=== PATIENT | female | born 1935 | race Two or more races ===

== ENCOUNTER 2017-08-14 10:35 | Outpatient (CLI) | payer OTHER | END 2017-08-14 10:41 | disposition home or self-care (01) | LOC: NUCLEAR 10:35 | DX: M81.0 Age-related osteoporosis without current pathological fracture (principal) ==

== ENCOUNTER → 2019-02-24 | Outpatient (CLI) | payer OTHER | END | disposition home or self-care (01) | LOC: MAMO-SONO 11:44 | DX: Z12.31 Encounter for screening mammogram for malignant neoplasm of breast (principal); Z87.898 Personal history of other specified conditions ==

== ENCOUNTER 2019-09-08 12:54 | Outpatient (CLI) | payer OTHER | END 2019-09-08 13:00 | disposition home or self-care (01) | LOC: SONOGRAMA 12:54 | DX: M06.09 Rheumatoid arthritis without rheumatoid factor, multiple sites (principal); M25.512 Pain in left shoulder; M25.511 Pain in right shoulder ==

== ENCOUNTER 2019-12-14 09:40 | Outpatient (CLI) | payer OTHER | END 2019-12-14 09:49 | disposition home or self-care (01) | LOC: SONOGRAMA 09:40 | PROVIDERS: ATTEND Surgery | DX: R19.09 Other intra-abdominal and pelvic swelling, mass and lump (principal) ==

== ENCOUNTER 2020-05-15 13:56 | Outpatient (CLI) | payer OTHER | END 2020-05-15 14:06 | disposition home or self-care (01) | LOC: RAD 13:56 | PROVIDERS: ATTEND Surgery | DX: M51.37 Other intervertebral disc degeneration, lumbosacral region (principal); M15.0 Primary generalized (osteo)arthritis ==

== ENCOUNTER → 2020-06-14 | Outpatient (CLI) | payer OTHER | END | disposition home or self-care (01) | LOC: TOM 13:15 | PROVIDERS: ATTEND Internal Medicine Hematology & Oncology | DX: R91.1 Solitary pulmonary nodule (principal); C50.411 Malignant neoplasm of upper-outer quadrant of right female breast ==

== ENCOUNTER 2021-01-08 13:26 | Outpatient (CLI) | payer OTHER | END 2021-01-08 13:39 | disposition home or self-care (01) | LOC: TOM 13:26 | PROVIDERS: ATTEND Internal Medicine Hematology & Oncology | DX: R91.8 Other nonspecific abnormal finding of lung field (principal); R09.1 Pleurisy; Q33.0 Congenital cystic lung; R63.4 Abnormal weight loss ==

== ENCOUNTER 2023-05-01 11:41 | Emergency (ER) | payer OTHER ==
[~2023-05-01] VITALS: Ht 154.9 cm; Wt 40.8 kg
[2023-05-01 13:02] LABS: HEMATOCRIT 36.6 % (36.0-45.00); HEMOGLOBIN 12.1 g/dL (12.0-15.00); MEAN CORPUSCULAR HEMOGLOBIN 28.1 pg (27.00-32.0); PLATELET COUNT 171 K/uL (150-450); RED BLOOD COUNT 4.31 M/uL (4.00-6.00)
[2023-05-01 13:47] LABS: CALCIUM 8.6 mg/dL (8.5-10.1); CREATININE SERUM 0.93 mg/dL (0.55-1.02); GFR 57.3; POTASSIUM 3.82 mEq/L (3.5-5.1)
== END 2023-05-01 16:22 | disposition home or self-care (01) ==
LOC: ER
PROVIDERS: Emergency Medicine
DX: K52.89 Other specified noninfective gastroenteritis and colitis (principal)
CPT/HCPCS: 36415; 96365; 96366; 99284; J7030

== ENCOUNTER → 2023-12-13 | Emergency (ER) | payer OTHER ==
[~2023-12-13] VITALS: Ht 149.9 cm; Wt 40.8 kg
[~2023-12-13] MED LIST: GLIPIZIDE ER10 MG PO; LORAZEPAM0.5 MG PO; SYNTHROID75 MCG PO; TRAMADOL HCL 50 MG TABLET PO ONE
[2023-12-13 14:29] LABS: PH,URINE 5.5 (5.0-8.0); URINE APPEARANCE Turbid; URINE BILIRRUBIN Negative (NEGATIVE); URINE BLOOD Moderate; URINE COLOR Yellow; URINE GLUCOSE Negative (NEGATIVE); URINE KETONE Trace (NEGATIVE); URINE LEUKOCYTE Large; URINE NITRATE Positive; URINE UROBILINOGEN 0.2 E.U./dl
[2023-12-13 14:32] LABS: URINE CAST 6.54 uL (0.0-1.40); URINE EPITHELIAL CELLS 12.6 uL (0.0-38.8)
[2023-12-13 14:50] LABS: URINE BACTERIA > 9821.5 uL (0.0-1933); URINE PROTEIN 100 (NEGATIVE); URINE RBC 0.9 uL (0.0-20.8); URINE WBC > 5548.3 uL (0.0-23.2)
[2023-12-13 14:52] LABS: URINE YEAST NEGATIVE /hpf
== END | disposition left against medical advice (07) ==
LOC: ER 11:40
PROVIDERS: General Practice
DX: M79.642 Pain in left hand (principal); Z91.013 Allergy to seafood

== ENCOUNTER 2024-04-10 12:12 | Inpatient (IN) | payer OTHER ==
[~2024-04-10] VITALS: Ht 157.5 cm; Wt 54.4 kg
[~2024-04-10 12:12] MED LIST changes: +ACETAMINOPHEN500 M2 PO; +CALCIUM500 M2 PO; +FOLIC ACID20 MG PO; +GLIPIZIDE XL5 MG PO; -TRAMADOL HCL 50 MG TABLET PO ONE; +TRIPLE FLEX CA1 EACH PO
[2024-04-10] MEDS ORDERED: SYNTHROID75 MCG (12:51)
[2024-04-10] MEDS ORDERED: NORVASC2.5 M1 (12:52)
[2024-04-10] MEDS ORDERED: GLIPIZIDE10 MG (12:52)
--- NOTE | 2024-04-10 12:52 | NUR ---
SE RECIBE PACIENTE ALERTA EN COMPANIA DE FAMILIAR LA CUAL INDICA QUE PRESENTA DIARRAS Y DEBILIDAD DESDE EL JUEVES.
[2024-04-10] MEDS ORDERED: 0.9 % SODIUM CHLORIDE 1,000 ML IV STA (12:57)
[2024-04-10] MEDS ORDERED: FAMOtidine 10 MG/ML (4ML VIAL) IV STA (12:58)
--- NOTE | 2024-04-10 13:09 | NUR ---
PACIENTA ALERTA EN COMPANIA DE FAMILIAR. RN MENDEZ EDUCA A FAMILIR SOBRE PAULO DE MUESTRAS Y TRATAMIENTO MEDICO ORDENADO POR , MARY ANN REFIERE ENTENDER. SE REALIZA PAULO DE MUESTRAS Y SE ADMINISTRA TRATAMIENTO MEDICO BAJO MEDIDAS ASEPTICAS. SE NOTIFICAN XRAY
[2024-04-10 14:21] LABS: HEMATOCRIT 45.2 % (36.0-45.00); HEMOGLOBIN 14.6 g/dL (12.0-15.00); MEAN CELL VOLUME 82.8 fL (80.00-100.00); MEAN CORPUSCULAR HEMOGLOBIN 26.8 pg (27.00-32.0); MEAN CORPUSCULAR HGB CONC 32.4 g/dl (32.0-36.0); RED BLOOD COUNT 5.46 M/uL (4.00-6.00); RED CELL DISTRIBUTION WIDTH 16.1 % (11.5-14.5)
[2024-04-10 14:49] LABS: BILIRUBIN TOTAL 0.43 mg/dL (0.3-1.2); BILIRUBIN,CONJUGATED 0.11 mg/dL (0.0-0.2); BILIRUBIN,UNCONJUGATED 0.32 mg/dL (0.0-0.6); CALCIUM 9.1 mg/dL (8.5-10.1); CREATININE SERUM 0.99 mg/dL (0.55-1.02); GFR 53.18; POTASSIUM 4.3 mEq/L (3.5-5.1); TOTAL PROTEIN 9.1 gm/dL (6.4-8.2)
[2024-04-10 15:07] LABS: PLATELET COUNT 93 K/uL (150-450)
[2024-04-10 16:18] LABS: PH,URINE 5.5 (5.0-8.0); URINE APPEARANCE Cloudy; URINE BILIRRUBIN Negative (NEGATIVE); URINE BLOOD Moderate; URINE COLOR Yellow; URINE GLUCOSE Negative (NEGATIVE); URINE KETONE 15 (NEGATIVE); URINE LEUKOCYTE Moderate; URINE NITRATE Negative; URINE UROBILINOGEN 0.2 E.U./dl
[2024-04-10 16:23] LABS: URINE RBC 18.5 uL (0.0-20.8); URINE WBC 3288.8 uL (0.0-23.2)
[2024-04-10 16:48] LABS: URINE BACTERIA > 9821.5 uL (0.0-1933); URINE CAST 0.73 uL (0.0-1.40); URINE EPITHELIAL CELLS 0.9 uL (0.0-38.8); URINE PROTEIN 300 (NEGATIVE)
--- NOTE | 2024-04-10 20:12 | NUR ---
SE NOTIFICA CT PENDIENTE.
--- NOTE | 2024-04-10 23:06 | NUR ---
PACIENTE ALERTA Y ORIENTADA X3. SE MANTIENE EN CAMA A NIVEL DE PISO JUNTO CON BARRANDAS ELEVADAS. PENDIENTE A LECTURA DE CT Y ENTREGA DE MUESTRA FECAL.
[2024-04-11] MEDS ORDERED: CEFTRIAXONE SODIUM 2,000 MG in 0.9 % SODIUM CHLORIDE 100 ML IV SCH (12:26)
[2024-04-11] MEDS ORDERED: PANTOPRAZOLE SODIUM 40 MG/VIAL VIAL IV SCH (12:28)
[2024-04-11] MEDS ORDERED: INSULIN LISPRO 1,000 UNIT/10 ML UNITS SUBCUTANEO PRN ×2 (12:30)
[2024-04-11] MEDS ORDERED: 0.9 % SODIUM CHLORIDE 1,000 ML IV SCH (12:30)
[2024-04-11] MEDS ORDERED: DEXTROSE 50 % IN WATER 0.5 G/ML DISP.SYRIN IV PRN (12:30)
[2024-04-11] MEDS ORDERED: ACETAMINOPHEN 500 MG GEL..CAP PO PRN (12:30)
[2024-04-11] MEDS ORDERED: ONDANSETRON HCL 4 MG in 0.9 % SODIUM CHLORIDE 50 ML IV PRN (13:15)
[2024-04-11 18:10] LABS: INR 1.02; PARTIAL THROMBOPLASTIN TIME 28.5 SECONDS (22.0-34.0); PROTHROMBIN TIME 11.1 SECONDS (9.0-11.5)
[2024-04-11 19:56] VITALS: BP 134/75; O2SAT 99
[2024-04-11] MEDS ORDERED: LORazepam 0.5 MG TABLET PO SCH (21:00)
[2024-04-12 01:14] VITALS: BP 150/74; O2SAT 98
[2024-04-12] MEDS ORDERED: LEVOTHYROXINE SODIUM 75 MCG TABLET PO SCH (06:00)
[2024-04-12 08:13] VITALS: BP 127/73; O2SAT 97
[2024-04-12 09:56] LABS: ALBUMIN 2.9 gm/dL (3.4-5.0); BILIRUBIN TOTAL 0.24 mg/dL (0.3-1.2); CALCIUM 7.9 mg/dL (8.5-10.1); CREATININE SERUM 0.65 mg/dL (0.55-1.02); GFR 86.42; GLOBULINA 4.3 G/DL (2.4-3.5); POTASSIUM 3.2 mEq/L (3.5-5.1); TOTAL PROTEIN 7.2 gm/dL (6.4-8.2)
[2024-04-12] MEDS ORDERED: METRONIDAZOLE/SODIUM CHLORIDE 100 ML IV SCH (17:00)
[2024-04-12 17:43] VITALS: BP 146/83
[2024-04-13 01:57] VITALS: BP 149/70; O2SAT 98
[2024-04-13 08:52] LABS: HEMATOCRIT 38.3 % (36.0-45.00); MEAN CELL VOLUME 81.5 fL (80.00-100.00); MEAN CORPUSCULAR HEMOGLOBIN 27.6 pg (27.00-32.0); MEAN CORPUSCULAR HGB CONC 33.8 g/dl (32.0-36.0); RED CELL DISTRIBUTION WIDTH 16.2 % (11.5-14.5)
[2024-04-13 08:53] VITALS: BP 148/80; O2SAT 97
[2024-04-13 08:53] LABS: PLATELET COUNT 74 K/uL (150-450)
[2024-04-13] MEDS ORDERED: LACTULOSE 20 G/30 ML BLIST.PACK PO SCH (09:00)
[2024-04-13] MEDS ORDERED: AMINO ACIDS/PROTEIN HYDROLYS 30 ML BLIST.PACK PO SCH (09:00)
[2024-04-13] MEDS ORDERED: ALBUMIN HUMAN-25 0.25GM/ML (50ML) VIAL IV SCH (09:00)
[2024-04-13] MEDS ORDERED: PROPRANOLOL HCL 10 MG TABLET PO SCH (09:04)
[2024-04-13] MEDS ORDERED: Cyanocobalamin/Mecobalamin 1 TAB.SL SL SCH (09:06)
[2024-04-13] MEDS ORDERED: SODIUM CHLORIDE 0.45 % 1,000 ML IV SCH (09:15)
[2024-04-13] MEDS ORDERED: FUROsemide 20 MG/2 ML VIAL IV SCH (10:04)
[2024-04-13] MEDS ORDERED: MAGNESIUM SULFATE 50% 1,000 MG/2 ML VIAL IM NR (10:06)
[2024-04-13] MEDS ORDERED: POTASSIUM CHLORIDE 20MEQ/100ML H2O PB IV NR (10:06)
[2024-04-13 10:46] LABS: PLATELET ESTIMATE DECREASED (NORMAL)
[2024-04-13 12:16] LABS: ALBUMIN 2.9 gm/dL (3.4-5.0); ALKALINE PHOSPHATASE 40 U/L (50-136); ALT/SGPT 46 U/L (12-78); ANION GAP 13 (10.0-20.0); AST/SGOT 74 U/L (15-37); BILIRUBIN TOTAL 0.32 mg/dL (0.3-1.2); BLOOD UREA NITROGEN 12 mg/dL (7-18); BUN CREA RATIO 21 (7.0-25.0); CALCIUM 7.9 mg/dL (8.5-10.1); CARBON DIOXIDE 20 mEq/L (21-32); CHLORIDE 112 mmol/L (98-107); CREATININE SERUM 0.56 mg/dL (0.55-1.02); GFR 102.64; GLOBULINA 4.4 G/DL (2.4-3.5); GLUCOSE FASTING 93 mg/dL (65-100); OSMOLALITY SERUM 283 MOSM/KG (275-295); POTASSIUM 3.27 mEq/L (3.5-5.1); SODIUM 142 mmol/L (136-145); TOTAL PROTEIN 7.3 gm/dL (6.4-8.2)
[2024-04-13 13:00] LABS: C-REACTIVE PROTEIN < 0.29 MG/DL (0.00-0.29); PHOSPHOROUS 1.9 mg/dL (2.5-4.9)
[2024-04-13] MEDS ORDERED: SPIRONOLACTONE 25 MG TABLET PO SCH (17:00)
[2024-04-13 19:09] VITALS: BP 134/81
[2024-04-13 20:24] LABS: ob NEGATIVE (NEGATIVE)
[2024-04-14 02:42] VITALS: BP 129/80; O2SAT 99
[2024-04-14 06:15] LABS: HEMATOCRIT 36.5 % (36.0-45.00); HEMOGLOBIN 12.2 g/dL (12.0-15.00); MEAN CELL VOLUME 81.1 fL (80.00-100.00); MEAN CORPUSCULAR HEMOGLOBIN 27.2 pg (27.00-32.0); MEAN CORPUSCULAR HGB CONC 33.5 g/dl (32.0-36.0); RED CELL DISTRIBUTION WIDTH 15.7 % (11.5-14.5)
[2024-04-14 06:41] LABS: ALBUMIN 3.9 gm/dL (3.4-5.0); ALKALINE PHOSPHATASE 38 U/L (50-136); ALT/SGPT 43 U/L (12-78); AST/SGOT 69 U/L (15-37); BILIRUBIN TOTAL 0.51 mg/dL (0.3-1.2); BLOOD UREA NITROGEN 17 mg/dL (7-18); BUN CREA RATIO 29 (7.0-25.0); CALCIUM 8.2 mg/dL (8.5-10.1); CARBON DIOXIDE 22 mEq/L (21-32); CHLORIDE 108 mmol/L (98-107); CREATININE SERUM 0.59 mg/dL (0.55-1.02); GFR 96.64; GLOBULINA 3.8 G/DL (2.4-3.5); GLUCOSE FASTING 118 mg/dL (65-100); OSMOLALITY SERUM 282 MOSM/KG (275-295); PHOSPHOROUS 2.2 mg/dL (2.5-4.9); SODIUM 140 mmol/L (136-145); TOTAL PROTEIN 7.7 gm/dL (6.4-8.2)
[2024-04-14 06:57] LABS: ANION GAP 13 (10.0-20.0); C-REACTIVE PROTEIN < 0.29 MG/DL (0.00-0.29)
[2024-04-14 06:58] LABS: POTASSIUM 2.66 mEq/L (3.5-5.1)
[2024-04-14 07:22] LABS: PLATELET COUNT 79 K/uL (150-450)
[2024-04-14 07:23] LABS: MANUAL PLATELET COUNT 134
[2024-04-14 08:59] VITALS: BP 142/70; O2SAT 99
[2024-04-14] MEDS ORDERED: POTASSIUM CHLORIDE IN WATER 40 MEQ/100 ML PIGGYBAG IV SCH (09:00)
[2024-04-14] MEDS ORDERED: FUROsemide 20 MG/2 ML VIAL IV PRN (09:27)
[2024-04-14] MEDS ORDERED: POTASSIUM PHOS,M-BASIC-D-BASIC 18 MM in 0.9 % SODIUM CHLORIDE 500 ML IV NR (09:30)
[2024-04-14] MEDS ORDERED: MAGNESIUM SULFATE IN WATER 50 ML IV SCH (12:00)
[2024-04-14] MEDS ORDERED: SPIRONOLACTONE 50 MG TABLET PO SCH (17:00)
[2024-04-14] MEDS ORDERED: PROPRANOLOL HCL 20 MG TABLET PO SCH (17:00)
[2024-04-14 18:18] VITALS: BP 140/70; O2SAT 100
[2024-04-15 02:48] VITALS: BP 133/71; O2SAT 96
[2024-04-15 10:10] VITALS: BP 149/70; O2SAT 96
[2024-04-15 17:51] VITALS: BP 158/78
[2024-04-16 02:17] VITALS: BP 138/80; O2SAT 96
[2024-04-16 08:24] LABS: ALBUMIN 3.5 gm/dL (3.4-5.0); ALKALINE PHOSPHATASE 34 U/L (50-136); ALT/SGPT 39 U/L (12-78); ANION GAP 8 (10.0-20.0); AST/SGOT 59 U/L (15-37); BILIRUBIN TOTAL 0.33 mg/dL (0.3-1.2); BLOOD UREA NITROGEN 14 mg/dL (7-18); BUN CREA RATIO 26 (7.0-25.0); CALCIUM 8.4 mg/dL (8.5-10.1); CARBON DIOXIDE 25 mEq/L (21-32); CHLORIDE 112 mmol/L (98-107); CREATININE SERUM 0.54 mg/dL (0.55-1.02); GFR 107.04; GLOBULINA 3.6 G/DL (2.4-3.5); GLUCOSE FASTING 144 mg/dL (65-100); OSMOLALITY SERUM 286 MOSM/KG (275-295); PHOSPHOROUS 2.2 mg/dL (2.5-4.9); POTASSIUM 3.31 mEq/L (3.5-5.1); SODIUM 142 mmol/L (136-145); TOTAL PROTEIN 7.1 gm/dL (6.4-8.2)
[2024-04-16 08:26] LABS: C-REACTIVE PROTEIN < 0.29 MG/DL (0.00-0.29)
[2024-04-16 08:33] LABS: HEMATOCRIT 34.8 % (36.0-45.00); HEMOGLOBIN 11.7 g/dL (12.0-15.00); MEAN CELL VOLUME 81.5 fL (80.00-100.00); MEAN CORPUSCULAR HEMOGLOBIN 27.3 pg (27.00-32.0); MEAN CORPUSCULAR HGB CONC 33.5 g/dl (32.0-36.0); RED BLOOD COUNT 4.27 M/uL (4.00-6.00); RED CELL DISTRIBUTION WIDTH 15.3 % (11.5-14.5)
[2024-04-16 08:58] LABS: PLATELET COUNT 111 K/uL (150-450)
[2024-04-16 09:28] VITALS: BP 157/76; O2SAT 99
[2024-04-16] MEDS ORDERED: POTASSIUM PHOS,M-BASIC-D-BASIC 18 MM in 0.9 % SODIUM CHLORIDE 250 ML IV NR (11:00)
[2024-04-16] MEDS ORDERED: POTASSIUM CHLORIDE 20MEQ/100ML H2O PB IV NR (11:00)
[2024-04-16] MEDS ORDERED: SPIRONOLACTONE50 MG PO (11:04)
[2024-04-16] MEDS ORDERED: LORAZEPAM0.5 MG PO (11:04)
[2024-04-16] MEDS ORDERED: LACTULOSE10 GM/152 PO (11:04)
[2024-04-16] MEDS ORDERED: PROPRANOLOL HCL10 MG PO (11:04)
[2024-04-16] MEDS ORDERED: NORVASC2.5 M1 PO (11:04)
[2024-04-16] MEDS ORDERED: INSULIN LI100 UNIT/1 SUBCUTANEO (11:05)
[2024-04-16] MEDS ORDERED: GLIPIZIDE XL5 MG PO (11:05)
[2024-04-16] MEDS ORDERED: LEVOTHYROXINE75 MCG PO (11:05)
[2024-04-16] MEDS ORDERED: CARAFATE1 GM PO (11:05)
[2024-04-16] MEDS ORDERED: Neurin-Sl Tablet Sl SL (11:06)
[2024-04-16] MEDS ORDERED: PROTEINEX-18 LI30 ML PO (11:06)
[2024-04-16] MEDS ORDERED: VENLAFAXINE H37.5 MG PO (11:06)
[2024-04-16] MEDS ORDERED: CEFDINIR300 MG PO (11:07)
[2024-04-16] MEDS ORDERED: INTESTINEX680 M1 PO (11:07)
[2024-04-16] MEDS ORDERED: SUCRALFATE 1 G TABLET PO SCH (13:00)
[2024-04-18 08:21] LABS: PLATELET ESTIMATE DECREASED (NORMAL)
== END 2024-04-16 12:58 | disposition home or self-care (01) | DRG 690 ==
LOC: ER 12:12 → MEDJ 04-11 12:48 → SEC-K 04-11 12:48 → MEDJ 04-11 15:54
PROVIDERS: General Practice; Internal Medicine Infectious Disease; ADMIT Internal Medicine; ATTEND Internal Medicine
PROC: BW28ZZZ Computerized Tomography (CT Scan) of Head (ICD-10-PCS; principal; 2024-04-12)
PROC: BW21ZZZ Computerized Tomography (CT Scan) of Abdomen and Pelvis (ICD-10-PCS; 2024-04-13)
PROC: BW40ZZZ Ultrasonography of Abdomen (ICD-10-PCS; 2024-04-13)
DX: N39.0 Urinary tract infection, site not specified (principal); E86.0 Dehydration; E87.6 Hypokalemia; K57.30 Diverticulosis of large intestine without perforation or abscess without bleeding; E03.9 Hypothyroidism, unspecified; B96.20 Unspecified Escherichia coli [E. coli] as the cause of diseases classified elsewhere; R41.82 Altered mental status, unspecified; E78.5 Hyperlipidemia, unspecified; D69.6 Thrombocytopenia, unspecified

== ENCOUNTER 2025-03-20 09:28 | Outpatient (CLI) | payer OTHER ==
[~2025-03-20 09:28] MED LIST changes: +CARAFATE1 GM PO; +CEFDINIR300 MG PO; +GLIPIZIDE10 MG; +INSULIN LI100 UNIT/1 SUBCUTANEO; +INTESTINEX680 M1 PO; +LACTULOSE10 GM/152 PO; +LEVOTHYROXINE75 MCG PO; +NORVASC2.5 M1; +NORVASC2.5 M1 PO; +Neurin-Sl Tablet Sl SL; +PROPRANOLOL HCL10 MG PO; +PROTEINEX-18 LI30 ML PO; +SPIRONOLACTONE50 MG PO; +SYNTHROID75 MCG; +VENLAFAXINE H37.5 MG PO
== END 2025-03-20 09:35 | disposition home or self-care (01) ==
LOC: RAD 09:28
PROVIDERS: ATTEND Internal Medicine
DX: M19.90 Unspecified osteoarthritis, unspecified site (principal); R26.2 Difficulty in walking, not elsewhere classified; G45.9 Transient cerebral ischemic attack, unspecified
CPT/HCPCS: 73721

== ENCOUNTER 2025-03-30 10:51 | Outpatient (CLI) | payer OTHER | END 2025-03-30 10:52 | disposition home or self-care (01) | LOC: NUCLEAR 10:51 | PROVIDERS: ATTEND Internal Medicine | DX: G45.9 Transient cerebral ischemic attack, unspecified (principal) ==